=== PATIENT | female | born 1995 | race Caucasian/White ===

== ENCOUNTER 2017-09-29 21:48 | Emergency (ER) | payer SELFPAY ==
[2017-09-29 21:49] VITALS: BP 122/90; PULSE 95; RESP 14; TEMP 36.6; O2SAT 98; BMI 39.1
--- NOTE | 2017-09-29 23:05 | ED.VISSUMM ---
- ER Visit Summary Date of Service: 09/29/17 Chief Complaint: Abscess History of Present Illness: The patient is a 22 F who presents with an abscess on her gluteal area for the past 5 days. Patient states she has had similar episodes in the past that needed to be incised and drained. Patient describes the pain as sharp and burning. Patient states the pain is worse with sitting and laying. Patient denies any fevers or chills. Patient denies any nausea or vomiting. Patient denies any discharge or drainage. Patient denies any other symptoms. Physical Examination: Vital signs are stable. Patient is afebrile. Patient is in no acute distress. Skin is warm dry. There is a tender erythematous fluctuant area over the left gluteal area near the midline. There is no active drainage noted. There is no surrounding erythema or induration. The remaining physical exam is within normal limits. Emergency Department Course and Treatment: The abscess area was cleaned with chlorhexidine and anesthetized 1% plain lidocaine locally. An 11 blade scalpel was used to make a cruciate incision. A moderate amount of purulent drainage was expressed. Gauze dressing was applied. Patient tolerated the procedure well. Patient was given a prescription for Bactrim. Patient was instructed to follow-up with her primary care physician in 5-7 days. Patient understood and was agreeable with the plan. All questions were answered. Disposition: Discharged home Impression: Left gluteal abscess This note was generated with [employer] dictation software. It may contain incorrect words, spelling, and punctuation that were not noted in review of the chart prior to signing ED Disposition - Plan for ED Patient: Disposition: Home or Assisted Living Chief Complaint: Abscess Diagnosis: Abscess, gluteal, left Instructions: ED Abscess IandD Prescriptions: Clindamycin HCl [Cleocin] 300 mg PO Q6H #40 cap Referrals: Jake Jones DO [Primary Care Provider] -
[2017-09-30 00:30] VITALS: BP 122/60; PULSE 80; RESP 18; O2SAT 99
== END 2017-09-30 00:31 | disposition home or self-care (01) ==
PROVIDERS: Emergency Provider Emergency Medicine; Family Provider Preventive Medicine Occupational Medicine; PCP Preventive Medicine Occupational Medicine
DX: L02.31 Cutaneous abscess of buttock (principal); E66.9 Obesity, unspecified
CPT/HCPCS: 10060; 99282

== ENCOUNTER → 2018-05-31 | Outpatient (CLI) | payer BC, SELFPAY ==
[2018-05-31 09:54] VITALS: BMI 39.1
[2018-05-31 11:04] LABS: Absolute Lymphocyte Count 2.24 X10^3/ul (0.83-4.51); Absolute Neutrophil Count 6.5 X10^3/uL (2.0-7.7); Basophil# 0.03 X10^3/uL; Basophil% 0.3 % (0-1); Eosinophil# 0.25 X10^3/uL; Eosinophils% 2.6 % (0-5); Hematocrit 40.1 % (37-47); Hemoglobin 13.1 g/dl (12.0-15.0); Lymphocyte # 2.24 X10^3/ul (4.0); Lymphocyte % 22.9 % (19-41); Mean Corp Hgb Conc 32.7 g/gl (32-36); Mean Corpuscular Hgb 29.8 pg (27.0-32.0); Mean Corpuscular Volume 91.3 fL (81-99); Mean Platelet Vol. 10.1 fl (6.2-12.0); Monocyte# 0.78 X10^3/uL; Neutrophil # 6.46 X10^3/uL (2.7-7.7); Platelet Count 310 K/mm3 (150-450); RBC Distribution Width CV 12.3 % (11.6-14.6); RBC Distribution Width SD 41.3 fl (35.1-43.9); Red Blood Count 4.39 M/mm3 (4.2-5.4); White Blood Count 9.8 K/mm3 (4.4-11.0)
[2018-05-31 11:07] LABS: POSITIVE COUNT NO; POSITIVE DIFFERENTIAL NO; POSITIVE MORPHOLOGY NO
[2018-05-31 11:59] LABS: ALB/GLOB Ratio 1.1 RATIO (0.9-2.4); AST(SGOT) 16 U/L (15-37); Alanine Aminotransfer ALT/SGPT 18 U/L (13-56); Albumin, Serum 3.9 g/dL (3.2-5.0); Alkaline Phosphatase 68 U/L (45-117); Anion Gap 4 (5-15); BUN 18 mg/dL (7-18); Calcium,Total 8.5 mg/dL (8.5-10.1); Chloride 105 mmol/L (98-107); Creatinine, Serum 0.82 mg/dL (0.55-1.02); EST Glomerular Filtration Rate 91 mL/min (>60); Est Glom Filt Rate - Afr Amer 110 mL/min (>60); Globulin 3.7 g/dL (2.2-4.2); Glucose 86 mg/dL (74-106); Potassium 3.7 mmol/L (3.5-5.1); Protein, Total 7.6 g/dL (6.4-8.2); Sodium Level 139 mmol/L (136-145)
[2018-05-31 12:01] LABS: hCG Titer Quant., Serum < 1 mIU/mL (<9 non-preg)
[2018-05-31 19:46] LABS: Chlamydia Trachomatis by PCR POSITIVE (Negative); Neisserai gonorrhoeae by PCR Negative (Negative); Probe Check PASS; Sample Adequacy Control PASS; Specimen Processing Control PASS
[2018-06-01 16:00] LABS: AFP, Tumor Marker 0.9 ng/mL (0.0-8.3); Cancer Antigen 125 7.4 U/mL (0.0-38.1)
[2018-06-07 12:55] LABS: HPV Reflexed? NOT INDICATED
== END | disposition home or self-care (01) ==
PROVIDERS: Family Provider Preventive Medicine Occupational Medicine; PCP Preventive Medicine Occupational Medicine; Referring Provider Obstetrics & Gynecology; Visit Provider Obstetrics & Gynecology
DX: R19.00 Intra-abdominal and pelvic swelling, mass and lump, unspecified site (principal); Z11.3 Encounter for screening for infections with a predominantly sexual mode of transmission; Z12.4 Encounter for screening for malignant neoplasm of cervix
CPT/HCPCS: 36415; 80053; 82105; 84702; 85025; 86304; 87491; 87591; 87624; 88175; G0145

== ENCOUNTER → 2018-06-02 | Outpatient (CLI) | payer BC, SELFPAY ==
[2018-05-31 09:54] VITALS: BMI 39.1
--- NOTE | 2018-06-02 08:40 | CT_ITS ---
STUDY: CT ABDOMEN AND PELVIS WITH CONTRAST REASON FOR EXAM: Female, 22 years old. Pelvic mass. Prior surgery to remove ovarian cyst. RADIATION DOSAGE (If Supplied By Facility): CTDIvol = ( 19.42 ) mGy, DLP = ( 1944.57 ) mGycm TECHNIQUE: Transaxial images were obtained from the dome of the diaphragm to the symphysis pubis with oral contrast. 100ML IV/Oral Isovue 300 was administered. Sagittal and coronal images were reconstructed. Individualized dose optimization techniques were used for this CT. COMPARISON: None. FINDINGS: The visualized lung bases are unremarkable. The visualized portions of the heart are within normal limits. Normal liver. The patent portal vein diameter is 13 mm. Normal gallbladder and extrahepatic biliary system. Normal spleen. Normal pancreas. Normal bilateral adrenal glands. Normal right kidney. Normal left kidney. No hydronephrosis. Normal visualized stomach. Normal small intestine. Normal colon. The appendix is visualized and appears normal. Normal abdominal aorta. Normal inferior vena cava. Normal retroperitoneum. Normal urinary bladder. There is a cystic mass with thin, eccentric right-sided internal septations in the low abdomen/pelvis just above the urinary bladder, measuring 18 x 21.3 x 12.05 cm (R 2400 mL), consistent with an ovarian cyst. Normal sized retroflexed uterus. Normal abdominal wall. Normal osseous structures. CT/Abdomen/Pelvis WITH Contrast IMPRESSION: 21 cm cystic mass with thin, eccentric right-sided internal septations consistent with a cyst of ovarian origin in the low abdomen/pelvis. This displaces adjacent structures, but there is no sign of bowel obstruction or hydronephrosis. Electronically Signed: Héctor Pineda MD at 17:03 EDT , Service support ,
== END | disposition home or self-care (01) ==
LOC: CT 08:39
PROVIDERS: Family Provider Preventive Medicine Occupational Medicine; PCP Preventive Medicine Occupational Medicine; Referring Provider Obstetrics & Gynecology; Visit Provider Obstetrics & Gynecology
DX: R19.00 Intra-abdominal and pelvic swelling, mass and lump, unspecified site (principal)
CPT/HCPCS: 74177; Q9967

== ENCOUNTER 2018-07-19 10:47 | Day surgery (SDC) | payer BC, SELFPAY ==
[2018-05-31 09:54] VITALS: BMI 39.1
[2018-07-05 13:12] LABS: Hematocrit 38.8 % (37-47); Hemoglobin 12.7 g/dl (12.0-15.0); Mean Corp Hgb Conc 32.7 g/gl (32-36); Mean Corpuscular Hgb 29.8 pg (27.0-32.0); Mean Corpuscular Volume 91.1 fL (81-99); Mean Platelet Vol. 10.1 fl (6.2-12.0); Platelet Count 304 K/mm3 (150-450); RBC Distribution Width CV 12.4 % (11.6-14.6); RBC Distribution Width SD 40.9 fl (35.1-43.9); Red Blood Count 4.26 M/mm3 (4.2-5.4)
[2018-07-05 13:13] LABS: Scan Indicated on CBC? Y/N NO
[2018-07-05 14:50] VITALS: BMI 39.1
--- NOTE | 2018-07-18 20:17 | PCM.HPOB.BLA ---
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 Is patient in pain?: No Allergies acetaminophen [From Percocet] Adverse Reaction (Verified 07/05/18 12:01) Nausea/Vom/Diarrhea oxycodone [From Percocet] Adverse Reaction (Verified 07/05/18 12:01) Nausea/Vom/Diarrhea Medications NK 07/03/18 [History Confirmed 07/05/18] Is last menstrual period known: Yes Post menopausal: No Patient : No : No PFSH Surgical History Ovarian cyst (Acute) Social History Smoking Status: Never smoker alcohol intake: never substance use type: does not use caffeine: Yes what type of physical activity do you participate in: walking seatbelt use: always do you feel safe at home: Yes additional social history: single- works at [employer] PRE OP : Details: MITCHELL SMALLWOOD is a 22 year old who presents for preop appointment. she has a large dermoid cyst and will have a laparotomy Pregancy History 0 Elective abortions Hx Para Spontaneous abortions Hx # Term Pregnancies Ectopic pregnancies Hx # Pregnancies Multiple births # of living children ROS Const Constitutional: Denies fatigue, fever(s), headache(s), increased appetite, poor appetite, weight gain or weight loss Cardio Card: Denies chest pain Resp Resp: Denies cough or dyspnea GI GI: Reports abdominal pain : Denies nipple discharge Skin Skin/Breast: Denies change in hair, breast lump, breast pain, breast skin changes or nipple discharge Exam Const General: cooperative, healthy appearing, comfortable, no acute distress, well developed Nutritional Appearance: average body habitus Orientation: alert HENMT Head: normal to inspection, normocephalic Neck Neck: normal visual inspection, trachea midline Thyroid: thyroid normal Resp Effort & Inspection: normal respiratory effort GI Inspection: normal to inspection, non-distended Palpation: soft, no hepatosplenomegaly, large mass present, tender Skin General: no rashes or lesions noted Assessment and plan: 22-year-old with ovarian mass Plan laparotomy with removal of the ovary discussed surgical risks including risks of anesthesia, infection, bleeding, injury to bowel, bladder or blood vessels, and patient wishes to proceed with surgery. UPDATE- I have seen the patient and performed any clinically relevant updates to the history and physical exam. Justine Ch MD
[2018-07-19] VITALS (10 sets, daily range): BP systolic 97–122; BP diastolic 55–74; PULSE 59–91; RESP 14–24; TEMP 36.6–37.1; O2SAT 96–100; BMI 42.0
--- NOTE | 2018-07-19 | OV_PTH ---
PATIENT: MITCHELL SMALLWOOD LOC: [facility] [place] U#:[id number] AGE/SX: 22/F ROOM: RE07/19/[address]: Dr. Justine Ch MD : 1995 BED: DIS: 07/20/2018 SPEC #: [id number] RECD: 07/19/18 15:29 STATUS: JORGE LUIS JAYME #: [id number] NHI: 07/19/18 00:[address]: Justine Ch DEPT: SURGICAL PATHOLOGY RECD BY: Winston Leija ENTERED: 07/20/18 10:13 SP TYPE: OVARY OTHR DR: Dr. Jake Jones DO Tissues: Left ovary Procedures: Special Stain Group II Mucicarmine Stain (control) Surgery Specimen Level V HEADER OPERATION: ERAS, exploratory laparotomy, unilateral salpingo-oophorectomy PRE-OP DIAGNOSIS: Ovarian mass TISSUE SUBMITTED: Left ovary and fallopian tube MICROSCOPIC DIAGNOSIS Left ovary and fallopian tube, salpingo-oophorectomy: Multiloculated mucinous cystadenofibroma. Tubo-ovarian adhesions. See comment. AM:valentín 07/21/18 COMMENT Mucin stain with matched control supports the above diagnosis. MICROSCOPIC DESCRIPTION Slides are reviewed. GROSS DESCRIPTION Received in fixative is one container labeled with the patient's name and designated left ovary and fallopian tube. The specimen consists of a spherical to slightly ovoid cystic tumor mass measuring 22.2 x 20 x 13.2 cm and weighing 2.2 kg. The serosal surface is bluish-pink to coronado-brown with some focal fibrous adhesions. Prominent vascular markings are observed. The specimen is opened to reveal 1700 cc of brown, watery fluid. The interior surface of the major cyst has a simple lining with two small nodules ranging in diameter from 0.4 to 0.7 cm. However, a separate portion of the specimen outside of the main cyst shows an area of multiloculated cyst measuring 9 x 7.1 x 2.7 cm. This multiloculated cyst is opened to reveal straw-colored mucoid fluid. The interior lining of this cyst is multiloculated. No nodules or papillary excrescences are found. The anterior linings of the nodules show smooth surfaces. Examination of the serosal surfaces demonstrates a 3 x 1 cm area of what appears to be fimbriated end of fallopian tube. Business Leader sections are submitted as follows: 1-9 - complex cystic structure, 10-12 - simple cystic structure, 13 & 14 - fallopian tube. / CE:valentín 07/20/18 TC:1 CPT: 55720, 12360
--- NOTE | 2018-07-19 | FLU_PTH ---
PATIENT: MITCHELL SMALLWOOD LOC: [facility] [place] U#:[id number] AGE/SX: 22/ ROOM: RE07/19/[address]: Dr. Justine Ch MD : 1995 BED: DIS: 07/20/2018 SPEC #: [id number] RECD: 07/20/18 09:54 STATUS: JORGE LUIS JAYME #: [id number] NHI: 07/19/18 00:[address]: Justine Ch DEPT: CYTOLOGY RECD BY: Winston Leija ENTERED: 07/20/18 10:05 SP TYPE: Fluid OTHR DR: Dr. Jake Jones, DO Tissues: Pelvis, NOS Procedures: Special Stain Group II Surgery Specimen Level IV Cytospin Fluid HEADER OPERATION: ERAS, exploratory laparotomy, unilateral salpingo-oophorectomy PRE-OP DIAGNOSIS: Ovarian mass TISSUE SUBMITTED: Peritoneal cell washings for cytology DIAGNOSIS CYTOLOGY Peritoneal washings for cytology (cytospin and cell block): Negative for malignant cells. AM:valentín 07/21/18 COMMENT Please see corresponding surgical case ([id number]). CYTOLOGY STUDY Slides are reviewed. CYTOLOGY GROSS Received is 5 ml of red cloudy fluid labeled with the patient's name and and designated per the requisition as peritoneal cell washings. Submitted for cytology preparation including cell block. / 07/20/18 TC:5 CPT: 01366, 91040
[2018-07-19] MEDS: Gabapentin 600 MG Tablet PO (11:55)
[2018-07-19] MEDS: Magnesium Sulfate 4gm/100mL 4 GM/100 ML IV.SOLN. IV (11:59)
[2018-07-19] MEDS: Celecoxib 200 MG Capsule 400 MG PO (12:01)
[2018-07-19] MEDS: Lactated Ringers 1,000 ML 40 ML IV ×2 (12:03→22:30)
[2018-07-19] MEDS: Enoxaparin 40 MG/0.4 ML Syringe SC (12:03)
[2018-07-19] MEDS: dexAMETHasone 10 MG/ML Vial 8 MG IV (12:04)
[2018-07-19 12:06] LABS: Bedside Glucose 80 mg/dL (70-110)
[2018-07-19] MEDS: Phenazopyridine 95 MG Tablet 190 MG PO (12:10)
[2018-07-19] MEDS: Acetaminophen 500 MG Tablet 1000 MG PO (12:10)
[2018-07-19 12:22] LABS: Internal QC Validated? YES +Cl - CLEAR BKGD; Pregnancy, Urine Negative Negative
[2018-07-19] MEDS: Scopolamine 1mg/72hr Patch 1 PATCH TRANSDERM. (12:30)
[2018-07-19] MEDS: Cefazolin 2 GM in 0.9% Normal Saline 100 ML IV (13:28)
[2018-07-19] MEDS: Ondansetron 4 MG/2 ML Vial IV (13:33)
--- NOTE | 2018-07-19 13:37 | OP.PCM_ITS ---
Problem List (1) Pelvic mass Status: Acute Comment: will need laparotomy, ovarian mass, ct ordered, labs (2) Cyclical pelvic pain Status: Chronic Comment: h/o ovarian cysts Report of Operation Date of Procedure: 07/19/18 Pre-Operative Diagnosis: ovarian mass Post-Operative Diagnosis: same Surgery/Procedure Performed:: laparotomy left salpingoophorectomy extensive lysis of adhesions Description of Surgical Findings:: enlarged left ovary over 25 cm in length and 20 cm in width, extensive adhesions of epiploica from small bowel and sigmoid colon to the entire area. Omental to uterine and right ovary adhesions. Omental to anterior abdominal wall adhesions. Normal right ovary normal uterus high school industrial arts teacher: Awilda Sutton high school industrial arts teacher: Idalia Castellon Type of Anesthesia:: General Special Medications: kinjal Specimen's removed: left ovary and tube Drains: hart Estimated Blood Loss (mL): 200 Fluids Replaced: crystalloid Description of Procedure: Patient was taken the operating room and placed under general anesthesia. She was prepped and draped in normal sterile fashion in the dorsal supine position. A vertical skin incision was made due to the large mass that measured approximately 25 cm in height. Subcutaneous tissue was dissected down to the level of the fascia which was incised in the midline and rectus bellies dissected off bilaterally peritoneum entered digitally incision extended superiorly and inferiorly. The fascial incision and the skin incision also extended up around the umbilicus due to the large mass and inability to mobilize and lifted out of the incision due to a large amount of scar tissue. Omental to anterior abdominal wall adhesions were noted which were taken down and tied off with Vicryl. The large mass was noted to be the left ovary with no papillary excrescences and a very smooth appearance noted. Pelvic washings were taken. Right ovary was noted to be within normal limits the right fallopian tube was fairly normal although some mild clubbing was noted and significant adhesions over the right tube and uterus were noted. There were large adhesions across the entire mass of the epiploica of multiple areas of bowel that was stuck to the ovary. With careful sharp and blunt dissection the adhesions were taken down circumferentially around the entire mass. Careful attention was paid to the proximity of the bowel and the epiploica was covered with moist towels to provide some gentle traction. Excellent hemostasis was noted. Over 60 minutes were spent intraoperatively dissecting the adhesions off of the ovarian mass. The utero-ovarian ligament was identified and transected with 0 Vicryl and then the infundibulopelvic ligament was identified and transected as well. Broad ligament was opened and additional attachments were skeletonized and transected with 0 Vicryl. The ovary was removed and sent to pathology for analysis. It weighed over 3300 g. Additional adhesiolysis was performed to remove the omentum from the uterus and arnel-fallopian tube area. Kinjal was applied to the areas and hemostasis was noted. Starting superiorly and then also inferiorly with a second suture the peritoneum and abdominal wall were closed with 3-0 Vicryl and 0 PDS strata fix suture. Subcutaneous tissue was copiously irrigated and reapproximated with plain suture and skin was closed with 3-0 Monocryl. Mepilex and Steri-Strips were applied. Patient was awoken and taken recovery in stable condition. Grafts/Implants Used: none - Complications none - Admit VTE Documentation VTE Present on Admission: No VTE Mechan Device Prophylaxis: SCD's
[2018-07-19] MEDS: Lactated Ringers 1,000 ML 70 ML IV (16:55)
[2018-07-19] MEDS: Ketorolac 30 MG/ML Syringe IV (17:53)
[2018-07-19] MEDS: Ondansetron ODT 4 MG Tablet PO (21:08)
[2018-07-19] MEDS: proMETHazine 25 MG Tablet 12.5 MG PO (22:28)
[2018-07-19 23:52] LABS: Cytology, Body Fluid / CSF SEE PATHOLOGY REPORT
[2018-07-20] MEDS: Lactated Ringers 1,000 ML 70 ML IV ×2 (00:26→04:17)
[2018-07-20] MEDS: Ketorolac 30 MG/ML Syringe IV ×3 (00:29→12:57)
[2018-07-20 04:24] VITALS: BP 104/61; PULSE 80; RESP 18; TEMP 37; O2SAT 99
[2018-07-20 06:12] LABS: Hematocrit 37.6 % (37-47); Hemoglobin 12.4 g/dl (12.0-15.0); Mean Corpuscular Hgb 29.8 pg (27.0-32.0); Mean Corpuscular Volume 90.4 fL (81-99); Mean Platelet Vol. 10.6 fl (6.2-12.0); Platelet Count 271 K/mm3 (150-450); RBC Distribution Width CV 12.1 % (11.6-14.6); RBC Distribution Width SD 39.8 fl (35.1-43.9); Red Blood Count 4.16 M/mm3 (4.2-5.4); White Blood Count 10.6 K/mm3 (4.4-11.0)
[2018-07-20 06:13] LABS: Scan Indicated on CBC? Y/N NO
[2018-07-20 09:48] VITALS: BP 100/60; PULSE 80; RESP 18; TEMP 36.7; O2SAT 100
[2018-07-20] MEDS: Docusate Sodium 100 MG Capsule PO (09:55)
[2018-07-20] MEDS: Enoxaparin 40 MG/0.4 ML Syringe SC (09:56)
--- NOTE | 2018-07-20 11:10 | PCM.PN.OB ---
Subjective: no CP SOB N V doing well - Physical Exam General: Alert, Oriented x3 Abdomen: Soft, Non Tender, Non-Distended Vital Signs Temp Pulse Resp BP Pulse Ox 98.1 F 80 18 100/60 100 07/20/18 09:48 07/20/18 09:48 07/20/18 09:48 07/20/18 09:48 07/20/18 09:48 Oxygen Flow Rate (L/min) 6 Oxygen Delivery Method Room Air Weight: 252 lb 13.923 oz Body Mass Index (BMI) 42.0 Intake and Output for Last 24 Hours 07/18/18 07/19/18 07/20/18 23:59 23:59 23:59 Intake Total 2100 / 2100 1482 / 1482 Output Total 275 / 275 1475 / 1475 Balance 1825 / 1825 Laboratory Tests Past 24 Hrs 07/19/18 07/19/18 07/20/18 11:00 13:00 05:30 WBC 10.6 RBC 4.16 L Hgb 12.4 Hct 37.6 MCV 90.4 MCH 29.8 MCHC 33.0 RDW 12.1 RDW Differential 39.8 Plt Count 271 MPV 10.6 Urine Test Negative Miscellaneous Cytology Pending POC Glucose 07/19/18 11:40 POC Glucose 80 Medical Necessity - Tobacco Use Smoking Status: Never smoker Tobacco Use: Non-smoker Assessment/Plan All Active Problems (Last Reviewed 07/05/18 @ 12:01 by Jaky Chairez) Pelvic mass (Acute) s/p laparotomy ovarian mass removal pod 1 ambulating, voiding tolerating po stable for dc home patient wanting to leave today, dc home
--- NOTE | 2018-07-20 11:11 | PCM.DC.AHY ---
Discharge Diet: No Restrictions Discharge Activity: Return to Normal Activity, May Not Drive - while taking narcotic pain medications. May resume sexual activity in: 6-8 weeks Call your doctor if your incision/area has: Continuous Slow Oozing, Sudden Increased Bleeding, Increased Pain/ Swelling, Increased Redness, Foul Smelling Discharge Call your doctor if you observe: Fever of 101 or Higher Allergies/Adverse Reactions: Allergies oxycodone [From Percocet] Adverse Reaction (Verified 07/19/18 11:33) Nausea/Vom/Diarrhea Medications to take at Discharge Hydrocodone/Acetaminophen [Stonewall 5-325 Tablet] 1 each PO Q4H PRN PRN 4 Days #28 tablet 07/20/18 Naproxen [Naprosyn] 250 - 500 mg PO Q8H PRN PRN #30 tablet 07/20/18 The following prescriptions were given: Hydrocodone/Acetaminophen [Stonewall 5-325 Tablet] 1 each PO Q4H PRN PRN 4 Days #28 tablet PRN Reason: Pain Naproxen [Naprosyn] 250 - 500 mg PO Q8H PRN PRN #30 tablet PRN Reason: MILD PAIN Primary Care Physician: Jake Jones DO [Primary Care Provider] - Test Results: Test results from this visit will be discussed in further detail at your follow-up appointment, if applicable. Please Follow Up With: Justine Ch MD - [phone] When: in 2 weeks
== END 2018-07-20 13:14 | disposition home or self-care (01) ==
LOC: SDC 10:48 → AC 10:58 → MS2 14:21
PROVIDERS: Anesthesiology; Family Provider Preventive Medicine Occupational Medicine; PCP Preventive Medicine Occupational Medicine; Referring Provider Obstetrics & Gynecology; Visit Provider Obstetrics & Gynecology
PROC: (CPT 49000; principal; 2018-07-19 12:45)
DX: D27.1 Benign neoplasm of left ovary (principal); N73.6 Female pelvic peritoneal adhesions (postinfective)
CPT/HCPCS: 58720; 36415; 81025; 82962; 85027; 86850; 86900; 88108; 88305; 88307; 88313; J7120; J2405

== ENCOUNTER → 2018-09-15 | Outpatient (CLI) | payer BC, SELFPAY ==
[2018-09-15 16:07] VITALS: BMI 42.0
== END | disposition home or self-care (01) ==
LOC: LABSPEC 16:38
PROVIDERS: Family Provider Preventive Medicine Occupational Medicine; PCP Preventive Medicine Occupational Medicine; Referring Provider Nurse Practitioner Women's Health; Visit Provider Nurse Practitioner Women's Health
DX: N39.0 Urinary tract infection, site not specified (principal)
CPT/HCPCS: 87077; 87086; 87088

== ENCOUNTER → 2018-12-26 | Outpatient (CLI) | payer BC, SELFPAY ==
[2018-11-20 14:17] VITALS: BMI 41.2
--- NOTE | 2018-12-26 08:06 | US_ITS ---
STUDY: ULTRASOUND OF THE FEMALE PELVIS - COMPLETE REASON FOR EXAM: Female, 23 years old. Mid pelvic pain. LMP: December 22, 2018. TECHNIQUE: Transabdominal and Transvaginal TECHNICAL QUALITY: Adequate. COMPARISON: None. FINDINGS: The uterus is retroflexed and is in a midline position. The uterus measures 7.1 cm x 5.4 cm x 3.3 cm. Normal uterine cervix. The endometrium measures 6.0 mm in thickness, and is fluid distended. There is no demonstrated endometrial mass. There is no demonstrated myometrial mass. I.U.D. - The patient does not have an I.U.D. The patient is status post right oophorectomy. The left ovary is non-visualized. There is no fluid in the cul-de-sac. Polycystic ovary disease: No. US/Transvaginal Non- IMPRESSION: Status post right oophorectomy. No acute abnormality is seen. Electronically Signed: Mihir Rodriguez, at 14:30 EST , Service support ,
--- NOTE | 2018-12-26 08:06 | US_ITS ---
STUDY: ULTRASOUND OF THE FEMALE PELVIS - COMPLETE REASON FOR EXAM: Female, 23 years old. Mid pelvic pain. LMP: December 22, 2018. TECHNIQUE: Transabdominal and Transvaginal TECHNICAL QUALITY: Adequate. COMPARISON: None. FINDINGS: The uterus is retroflexed and is in a midline position. The uterus measures 7.1 cm x 5.4 cm x 3.3 cm. Normal uterine cervix. The endometrium measures 6.0 mm in thickness, and is fluid distended. There is no demonstrated endometrial mass. There is no demonstrated myometrial mass. I.U.D. - The patient does not have an I.U.D. The patient is status post right oophorectomy. The left ovary is non-visualized. There is no fluid in the cul-de-sac. Polycystic ovary disease: No. US/Pelvic (Non ) IMPRESSION: Status post right oophorectomy. No acute abnormality is seen. Electronically Signed: Mihir Rodriguez, at 14:30 EST , Service support ,
== END | disposition home or self-care (01) ==
LOC: OPUS 08:05
PROVIDERS: Family Provider Preventive Medicine Occupational Medicine; PCP Preventive Medicine Occupational Medicine; Referring Provider Nurse Practitioner Women's Health; Visit Provider Nurse Practitioner Women's Health
DX: R10.2 Pelvic and perineal pain (principal)
CPT/HCPCS: 76830; 76856

== ENCOUNTER → 2019-03-26 | Outpatient (CLI) | payer BC, SELFPAY ==
[2019-03-26 09:12] VITALS: BMI 42.0
[2019-03-26 15:08] LABS: Bacteria 0 SEEN /hpf (None Seen); Mucous, Urine 0 SEEN /hpf (<or=2+)
[2019-03-26 15:18] LABS: Color, Urine Yellow (Yellow); Glucose, Dipstick Normal (Normal); Ketone-Dipstick Negative (Negative); Leukocyte Esterase-Dipstick 100 /ul (Negative); Nitrite-Dipstick Negative (Negative); Occult Blood-Urine 10 /ul (Negative); Protein-Dipstick 30 mg/dl (Negative); Urine Bilirubin Dipstick Negative (Negative); Urine Clarity Cloudy (Clear); Urine Urobilinogen Normal (Normal)
[2019-03-26 15:51] LABS: Red Blood Cells-Urine 0-5 SEEN /hpf (0-5); Squamous Epithelial Cells - UA 10-25 SEEN /hpf (5-10); White Blood Cells 50-100 SEEN /hpf (0-5)
== END | disposition home or self-care (01) ==
LOC: LABSPEC 14:30
PROVIDERS: PCP Preventive Medicine Occupational Medicine; Referring Provider Nurse Practitioner Family; Visit Provider Nurse Practitioner Family
DX: N39.0 Urinary tract infection, site not specified (principal)
CPT/HCPCS: 81001; 87077; 87086; 87088

== ENCOUNTER 2019-06-30 03:50 | Emergency (ER) | payer BC, SELFPAY ==
[2019-03-26 09:12] VITALS: BMI 42.0
[2019-06-30 03:52] VITALS: BP 136/81; PULSE 101; RESP 16; TEMP 36.9; O2SAT 98; BMI 41.8
--- NOTE | 2019-06-30 04:23 | RAD_ITS ---
STUDY: X-RAY - ABDOMEN/PELVIS REASON FOR EXAM: Female, 23 years old. Rectal fb TECHNIQUE: Two AP supine views of the abdomen and pelvis. COMPARISON: None. FINDINGS: Lung bases are out of the [id number]-[id number]. There is moderate stool in the colon. Liver spleen and kidneys are obscured on this study. There is a 10.5 x 5 cm foreign body within the sigmoid colon projected over the sacrum approximately 8 cm proximal to the level of the rectum. Normal visualized osseous structures. RAD/Abdomen Single View IMPRESSION: 10.5 x 5 cm foreign body within the sigmoid colon. Electronically Signed: Henny Knight MD at 5:16 EDT Tel , Service support ,
--- NOTE | 2019-06-30 04:27 | ED.DCSUM_ITS ---
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 no abd pain, n/v. Narrative: Patient and her boyfriend placed a rubber or silicone dildo of her anus and it was lost inside. Her boyfriend tried to remove it with his finger, she states he said he could feel it, but not get it out. She denies any other foreign objects. It is battery-operated. Past Medical History - Allergies and Home Meds Allergies/Adverse Reactions: Allergies oxycodone [From Percocet] Adverse Reaction (Verified 06/30/19 03:51) Nausea/Vom/Diarrhea Primary Care Physician: NOT,DEFINED [NON-STAFF] - Past Medical History: None Lives: Spouse/ Significant Other Smoking Status: Never smoker Review of Systems General: Denies: Chills, Fever, Sweats Eyes: Denies: Visual changes - bilaterally, Diplopia ENT: Denies: Rhinorrhea, Sore throat Cardiovascular: Denies: Chest pain, Palpitations Respiratory: Denies: Dyspnea, Cough, Dyspnea on exertion Gastrointestinal: Denies: Abdominal pain, Nausea, Vomiting, Diarrhea, Melena, Hematochezia Genitourinary: Denies: Dysuria, Hematuria, Frequency Musculoskeletal: Denies: Neck pain, Back pain, Extremity Pain Skin: Denies: Rash, Wounds Neurological: Denies: Headache, Weakness, Numbness Physical Exam Vital Signs/Narrative: Vital Signs Temp Pulse Resp BP Pulse Ox 06/30/19 03:52 98.5 F 101 H 16 136/81 H 98 Inital Vital Signs reviewed: Yes General: Well nourished, Well developed, No Acute Distress Head: Normocephalic, Atraumatic Eyes: Perrl, EOMI ENT: Moist mucous membranes, No rhinorrhea Neck: Supple, Nontender Cardiovascular: Regular rate, Regular rhythm, No murmurs. Negative for: Tachycardia Respiratory: No distress, CTA bilaterally, Chest nontender Abdomen: Soft, Nontender, Nondistended, Normal bowel sounds Rectal: Nontender, - - No foreign object palpable. No signs of perianal trauma or abscess. Back: Nontender, Normal Inspection Extremities: Nontender, No edema Skin: Normal color, No rash, No Trauma Neurological: Alert, Oriented x3, Cranial nerves II-XII grossly intact, Normal Strength, Normal Sensation, Normal Gait Psychological: Normal affect, Normal Mood Diagnostic/Tx/Re-eval Clinical Impression(s) from Imaging Studies KUB X-Ray 06/30/19 04:23 IMPRESSION: 10.5 x 5 cm foreign body within the sigmoid colon. Electronically Signed: Henny Knight MD at 5:16 EDT Tel , Service support , - Medical Decision Making Since I was not able to palpate the foreign body, a KUB x-ray was obtained, verifying presence of a rectal foreign body with electronics. I discussed with Dr. Can who was on for surgery, she thought it would be reasonable to try a mineral oil enema first, before rectal exam under anesthesia/endoscopy. This was performed, and after 45 minutes or so, patient was able to have a bowel movement and the foreign body followed along with it, completely removed spontaneously. Patient feels much better. This was uncomplicated. Given appropriate discharge instructions. ED Disposition - Plan for ED Patient: Disposition: Home or Assisted Living Diagnosis: Foreign body of rectum Instructions: ED Rectal Foreign Body Removed Adult Referrals: Doctor,Your [STAFF PHYSICIAN] - As Needed
[2019-06-30] MEDS: Mineral Oil 1 BOTTLE ENEMA 1 ML RECTAL (04:55)
[2019-06-30 06:15] VITALS: PULSE 87; RESP 18; O2SAT 98
== END 2019-06-30 06:29 | disposition home or self-care (01) ==
PROVIDERS: Emergency Provider Emergency Medicine
DX: T18.4XXA Foreign body in colon, initial encounter (principal)
CPT/HCPCS: 74018; 99282

== ENCOUNTER → 2019-09-10 | Outpatient (CLI) | payer BC, SELFPAY ==
[2019-09-10 08:10] VITALS: BMI 41.8
[2019-09-10 15:54] LABS: Mucous, Urine 0 SEEN /hpf (<or=2+)
[2019-09-10 16:09] LABS: Color, Urine Yellow (Yellow); Glucose, Dipstick Normal (Normal); Leukocyte Esterase-Dipstick 100 /ul (Negative); Nitrite-Dipstick Positive (Negative); Occult Blood-Urine 50 /ul (Negative); Protein-Dipstick 100 mg/dl (Negative); Specific Gravity, Urine 1.025 (1.002-1.030); Urine Bilirubin Dipstick Negative (Negative); Urine Clarity Cloudy (Clear); Urine Urobilinogen Normal (Normal)
[2019-09-10 16:57] LABS: White Blood Cells 25-50 SEEN /hpf (0-5)
[2019-09-10 16:58] LABS: Bacteria 1+ /hpf (None Seen); Red Blood Cells-Urine 0-5 SEEN /hpf (0-5); Squamous Epithelial Cells - UA 10-25 SEEN /hpf (5-10)
[2019-09-10 17:38] LABS: Ketone-Dipstick 150 mg/dl (Negative)
== END | disposition home or self-care (01) ==
LOC: LABSPEC 10:18
PROVIDERS: Referring Provider Physician Assistant Surgical; Visit Provider Physician Assistant Surgical
DX: R35.0 Frequency of micturition (principal)
CPT/HCPCS: 81001; 87077; 87086; 87088

== ENCOUNTER → 2021-12-15 | Outpatient (CLI) | payer BC, SELFPAY ==
[2021-12-15 10:20] LABS: Bacteria 0 SEEN /hpf (None Seen); Mucous, Urine 0 SEEN /hpf (<or=2+)
[2021-12-15 10:31] LABS: Color, Urine Yellow (Yellow); Glucose, Dipstick Normal (Normal); Ketone-Dipstick Negative (Negative); Leukocyte Esterase-Dipstick 100 /ul (Negative); Nitrite-Dipstick Negative (Negative); Occult Blood-Urine 250 /ul (Negative); Protein-Dipstick 30 mg/dl (Negative); Urine Bilirubin Dipstick Negative (Negative); Urine Clarity Sl. Cloudy (Clear); Urine Urobilinogen 1 mg/dl (Normal)
[2021-12-15 10:42] LABS: Red Blood Cells-Urine 25-50 SEEN /hpf (0-5); Squamous Epithelial Cells - UA 0-5 SEEN /hpf (5-10); White Blood Cells 10-25 SEEN /hpf (0-5)
== END | disposition home or self-care (01) ==
LOC: LABSPEC 10:06
PROVIDERS: Referring Provider Physician Assistant Surgical; Visit Provider Physician Assistant Surgical
DX: N39.0 Urinary tract infection, site not specified (principal)
CPT/HCPCS: 81001; 87077; 87086; 87088; 87186

== ENCOUNTER 2021-12-22 11:24 | Day surgery (SDC) | payer BC, SELFPAY ==
--- NOTE | 2021-12-21 22:52 | HP.PCM_ITS ---
History and Physical Intake Vital Signs ? 12/04/2209:52 12/04/2209:53 Height 5 ft 5 in 5 ft 5 in Weight: 243 lb ? BMI 40.4 ? BP 102/80 ? 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 Ovarian cyst S/P unilateral salpingo-oophorectomy (~07/19/18) Family History?(Updated 12/04/21 @ 10:59 by Lorrie Comer) Father?? Diabetes ?? ? parents were adopted- does not know history other than DM for father Social History? Smoking Status:? Never smoker alcohol intake:? never substance use type:? does not use caffeine:? Yes what type of physical activity do you participate in:? walking seatbelt use:? always do you feel safe at home:? Yes additional social history:? single- works at [employer] History ? ? ? 0 ? Elective abortions ? Hx Para ? Spontaneous abortions ? Hx # Term Pregnancies ? Ectopic pregnancies ? Hx # Pregnancies ? Multiple births ? # of living children ? HPI Encounter for routine gynecological examination Details: MITCHELL SMALLWOOD is a 26 year old who presents for annual exam.? trying to lose weight hasn't formally been tracking but has increase activity. still has lower pelvic and baodminal pain. she is also wanting sterilization.? she has never wanted to have children and is wanting to not have to take control anymore and wants permanent sterilization Last PAP: 2019 History of abnormal PAP: no Other preventative health care screenings: pcp Female Reproductive History Last Menstrual Period: 10/14/22 Cycle Length: 21-35 Bleeding Duration: 5 Questions: metorrhagia: No, sexually active: Yes, dyspareunia: No and PCB: No Menopausal Symptoms: No hot flashes, No night sweats, No weight change, No mood changes, No difficulty concentrating, No sleep problems and No change in libido ROS Const Constitutional: Reports as per HPI; Denies fatigue, increased appetite, poor appetite, night sweats, weight gain or weight loss Cardio Card: Denies chest pain Resp Resp: Denies cough or dyspnea GI GI: Reports as per HPI and abdominal pain; Denies bloating, constipation, nausea or vomiting : Reports as per HPI, urinary frequency and other; Denies difficulty voiding, dysuria, hematuria, hot flashes, nipple discharge, pelvic pain, prolapse symptoms, urinary incontinence, urinary urgency, vaginal discharge, vaginal dryness, vaginal odor or vaginal pruritus Skin Skin/Breast: Denies changing lesions, breast mass, breast pain, breast skin changes or nipple discharge Psych Psych: Reports depression (decline smedicaiton- states this is a lifelong issues); Denies anxiety, change in libido or difficulty concentrating Exam Const General: cooperative, healthy appearing, comfortable, no acute distress, well developed and well groomed [facility] Head: normal to inspection and normocephalic Ears: hearing grossly normal bilaterally and external ears normal Nose: external nose normal Face and sinus: normal facial exam Neck Neck: normal visual inspection, full ROM and no lymphadenopathy Thyroid: thyroid normal Chest Chest palpation & inspection: normal inspection of the chest Breast inspection: normal inspection of the breasts and normal inspection of the axillae Breast palpation: normal palpation of the breasts, normal palpation of the axillae and no axillary lymphadenopathy Resp Effort & Inspection: normal respiratory effort GI Inspection: normal to inspection and non-distended Palpation: soft, no hepatosplenomegaly and no guarding Skin General: no rashes or lesions noted Neuro General: patient alert, moves all extremities and no focal motor deficits Extrem General: normal to inspection and no pedal edema Psych Appearance: grossly normal Mental Status: mental status grossly normal Affect: normal affect Speech and Movement: speech and movement normal Attitude: cooperative Coding Level of Care Code Off vis,est,prev 18-39yrs Diagnoses Encounter for routine gynecological examination? Z01.419 ? ? ? Gynecological examination findings: abnormal findings ABSENT Sterilization? Z30.2 Assessment and Plan Assessment and Plan (1) Encounter for routine gynecological examination: ?Qualifiers: ?Gynecological examination findings:?abnormal findings ABSENT? Qualified Code(s):?Z01.419 - Encounter for gynecological examination (general) (routine) without abnormal findings (2) Sterilization: ?Status:?Acute ?Comment: plan lap salpingectomy Plan Cervical cancer screening: pap due but declined pelvic exam on menses Breast cancer screening: clinical she is requesting sterilization.? she has been this way for her lifetime, she has ended relationships because she doesn't want children.? she was counseled regarding risk of regret and she wants to proceed. other health maintenance examination reviewed and orders placed if needed.? Encouraged maintenance of a healthy weight and active lifestyle and handout given. Annual exam handout including recommendations for good health guidelines, Calcium/vitamin D recommendations, and basic screening information given.? Problem list up to date, see problem list details for any additional plan information. Follow up in one year for annual health maintenance exam or sooner if needed. UPDATE- I have seen the patient and performed any clinically relevant updates to the history and physical exam. Justine Ch MD
[2021-12-22] VITALS (14 sets, daily range): BP systolic 105–122; BP diastolic 69–79; PULSE 59–83; RESP 16–18; TEMP 36.9–37.2; O2SAT 96–100; BMI 39.0
[2021-12-22] MEDS: Lactated Ringers 1,000 ML 15 ML IV ×2 (11:35→15:45)
[2021-12-22 12:06] LABS: Internal QC Validated? YES +Cl - CLEAR BKGD; Pregnancy, Urine Negative Negative
[2021-12-22 12:11] LABS: Absolute Lymphocyte Count 2.04 X10^3/uL (0.83-4.51); Absolute Neutrophil Count 4.2 X10^3/uL (2.0-7.7); Basophil# 0.04 X10^3/uL; Basophil% 0.6 % (0-1); Eosinophil# 0.21 X10^3/uL; Eosinophils% 2.9 % (0-5); Hematocrit 39.7 % (37-47); Hemoglobin 13.6 g/dL (12.0-15.0); Lymphocyte # 2.04 X10^3/ul (0.83-4.51); Lymphocyte % 28.4 % (19-41); Mean Corp Hgb Conc 34.3 g/dL (32-36); Mean Corpuscular Hgb 31.6 pg (27.0-32.0); Mean Corpuscular Volume 92.1 fL (81-99); Mean Platelet Vol. 10.5 fl (6.2-12.0); Monocyte# 0.64 X10^3/uL; Monocyte% 8.9 % (0-10); NRBC Flagged by Analyzer 0 % (0-5); Neutrophil # 4.24 X10^3/uL (2.7-7.7); Neutrophil % 58.9 % (47-70); Platelet Count 285 K/mm3 (150-450); RBC Distribution Width CV 13.2 % (11.6-14.6); RBC Distribution Width SD 45.1 fl (35.1-43.9); Red Blood Count 4.31 M/mm3 (4.2-5.4); White Blood Count 7.2 K/mm3 (4.4-11.0)
--- NOTE | 2021-12-22 13:10 | FALS_PTH ---
PATIENT: MITCHELL SMALLWOOD [place] [facility] [place][id number] AGE/SX: 26/F ROOM: RE12/22/[address]: Dr. Justine Ch MD : 1995 BED: DIS: 12/22/2021 SPEC #: [id number] RECD: 12/23/21 07:18 STATUS: JORGE LUIS REMissy #: [id number] NHI: 12/22/21 13:[address]: Justine Ch DEPT: SURGICAL PATHOLOGY RECD BY: Jerod Dyson ENTERED: 12/23/21 08:46 SP TYPE: FALL TUBES OTHR DR: No Primary Care Phys Tissues: Fallopian tube Procedures: Surgery Specimen Level II HEADER OPERATION: Laparoscopic salpingectomy, extensive lysis of adhesions PRE-OP DIAGNOSIS: Elective sterilization TISSUE SUBMITTED: Right fallopian tube MICROSCOPIC DIAGNOSIS Right fallopian tube, salpingectomy: Complete cross-section of fallopian tube with no pathologic change. AM:valentín 12/24/2021 MICROSCOPIC DESCRIPTION Slides are reviewed. GROSS DESCRIPTION Received in fixative is one container labeled with the patient's name and designated right fallopian tube. The specimen consists of a 4 cm segment of fallopian tube containing a normal fimbrial end. The fallopian tube has a diameter of 0.8 cm. No mass lesions are identified. Banking Officer sections are submitted in one cassette. / AM:valentín 12/23/2021 TC:4 CPT: 54201
[2021-12-22] MEDS: Bupivacaine 0.25% 30 ML Vial (15:11)
--- NOTE | 2021-12-22 17:26 | DCINST_ITS ---
Discharge Instructions Diet Discharge Diet: No restrictions Activity Discharge Activity: Return to Normal Activity, May Drive (when pain free) and May Shower May resume sexual activity in: 1 week Weight Bearing Status: Full weight bearing Lifting Restrictions: 30 lbs for 2 weeks Dressing / Incision Call your doctor if your incision/area has: Continuous Slow Oozing, Sudden Increased Bleeding, Increased Pain/ Swelling, Increased Redness and Foul Smelling Discharge Call your doctor if you observe: Fever of 101 or Higher, Using more than 1 pad per hour, Shortness of breath, Chest pain and Uncontrolled pain Suture Line Care: Avoid Pulling/Pushing and Avoid Pinching/Bending Remove Dressing in: 1 week (if present) Cleanse incision/area with: Soap & Water and Keep Dressing Clean & Dry Follow Up Care Please Follow Up With: Justine Ch MD When: Call to make an appointment with your doctor for a postop visit in 2 weeks Test Results: Test results from this visit will be discussed in further detail at your follow- up appointment, if applicable. Discharge Plan Admission Attending Provider: Justine Ch Primary Care Provider: Care Physician,Azeb Primary Discharge Orders/Prescriptions Prescriptions: New hydrocodone-acetaminophen 5-325 mg Tablet 1 - 2 tab PO Q6H PRN PRN (Reason: Pain Score 1-5/10) 7 Days Qty: 0 0RF naproxen 250 mg tablet 250 - 500 mg PO Q8H PRN PRN (Reason: MILD PAIN) Qty: 30 1RF hydrocodone-acetaminophen 5-325 mg tablet 1 tab PO Q6H PRN (Reason: pain) 7 Days Qty: 28 0RF Referrals / Follow Up: Care PhysicianAzeb Primary [Primary Care Provider] - Disposition Disposition (needs filled in before D/C Order can be placed): Home, Self Care
--- NOTE | 2021-12-22 17:26 | OP.PCM_ITS ---
Problems Associated Problem List Diagnoses (1) Sterilization: (2) History of salpingectomy: (3) Pelvic adhesions: (4) Cyclical pelvic pain: Report of Operation Pre-Operative Diagnosis: see problem list Post-Operative Diagnosis: same Surgery/Procedure Performed:: laparoscopic bilateral salpingectomy Description of Surgical Findings:: nl uterus tubes ovaries Type of Anesthesia: General and Local Specimen's removed: tubes Drains: none Estimated Blood Loss (mL): 50 Fluids Replaced: crystalloid Description of Procedure: Patient was taken in the operating room and was placed under general anesthesia was prepped and draped in normal sterile fashion in the dorsal lithotomy position. Bladder was drained of clear urine and SCDs were on preoperatively. Uterus was sounded and a uterine manipulator was placed after dilating. Attention was then paid to the abdominal portion of the procedure and the umbilicus was elevated with towel clamps and injected with Marcaine and after a 5 mm incision was made and the Veress needle was entered into the abdomen confirmed to be intra-abdominal with a low opening pressure of less than 5 mmHg. Abdomen was insufflated with CO2 gas and a 5 mm optical trocar was placed under direct visualization. A 5 mm port was placed in the right and left lower quadrant under direct visualization. Severe scar tissue was encountered and uterus and ovary and tube were not visualized. Omentum was completely adherent to the anterior abdominal wall. This was taken down with the LigaSure device progressively to perform adhesiolysis. Then hydrodissection was used to release the omentum off the anterior cul-de-sac and lower uterine corpus anteriorly. Sharp dissection and blunt dissection using the LigaSure device as well as energy to cauterize dense tissue areas were used to open up and normalize anatomy. Sigmoid colon to the left pelvic sidewall adhesions were noted and taken down with the LigaSure device. Part of the right pericolic fat was noted to be adherent to the right adnexa and ovary. Adhesiolysis continued to be performed taking the bowel off the back of the uterus and opening up the space. It was still unclear exactly where the bowel was next to the ovary on the right- hand side and therefore general surgery was consulted for assistance. Dr. Soto came in and confirmed the correct anatomical spaces and dissected off the perisigmoid area from the dense adherent tissue to the ovary putting the space and releasing it off the back of the lower uterine corpus without complication. He looked over the other areas and noted no bowel involvement or issues that he could see at that time. The right fallopian tube was then elevated and removed after dissecting it off with the LigaSure device. 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 A hemorrhagic versus chocolate cyst was encountered and drained no visible cyst wall to be removed was noted. Multiple areas were cauterized to obtain hemostasis and Floseal was placed over the base of the ovary with the raw areas were noted to obtain additional hemostasis. Floseal was also placed over some of the raw areas over the back of the uterus where the adhesiolysis was performed. Angela placed over all of the areas to help with the raw appearance and in hopes of reducing scar tissue in the future. Tube was placed in a 5 mm port bag and removed through the 5 mm port without complication. All instruments removed from the abdomen after gas was desufflated. Port sites were closed with 3-0 Monocryl Steri's and op sites were applied. All instruments removed from the vagina and patient was awoken and taken recovery in stable condition. Grafts/Implants Used: none Complications none Admit VTE Documentation VTE Present on Admission: No VTE Mechan Device Prophylaxis: SCD's Multi Select Codes Urinary/Genital Urinary/Genital CPT Codes: 84848 Laproscopic BS/O
== END 2021-12-22 20:20 | disposition home or self-care (01) ==
LOC: SDC 11:25 → AC 11:27
PROVIDERS: Anesthesiology; Referring Provider Obstetrics & Gynecology; Visit Provider Obstetrics & Gynecology
PROC: (CPT 58661; principal; 2021-12-22 12:55)
DX: Z30.2 Encounter for sterilization (principal); F12.90 Cannabis use, unspecified, uncomplicated
CPT/HCPCS: 58661; 00840; 81025; 85025; 86850; 86900; 86901; 88302; J7120; J2405

== ENCOUNTER 2022-01-13 11:19 | Inpatient (IN) | payer BC, SELFPAY ==
[2022-01-13 11:19] VITALS: BP 118/82; PULSE 106; RESP 16; TEMP 36.6; O2SAT 100; BMI 38.7
--- NOTE | 2022-01-13 12:22 | CT_ITS ---
STUDY: CT ABDOMEN AND PELVIS WITH CONTRAST REASON FOR EXAM: Female, 26 years old. abdominal pain RADIATION DOSAGE (If Supplied By Facility): CTDIvol = ( 16.91 ) mGy, DLP = ( 1342.84 ) mGycm TECHNIQUE: Transaxial images were obtained from the dome of the diaphragm to the symphysis pubis without oral contrast. IV 100mL Isovue-300 was administered. Sagittal and coronal images were reconstructed. Individualized dose optimization techniques were used for this CT. COMPARISON: CT of abdomen and pelvis dated JUNE 02, 2018 FINDINGS: Mild to moderate inflammatory stranding and edema is present across the lower abdomen and upper pelvis radiating from the superior aspect of the uterus and right adnexa suggesting mesenteric inflammation or infection or PID. No abscess or free air is present. The uterine and right ovarian parenchyma are grossly unremarkable. The left ovary has been surgically removed. Fluid-filled and mildly dilated jejunal loops suggests mild enteritis or focal ileus. Normal remaining small bowel loops. Normal stomach. Normal appendix. Normal colon. The visualized lung bases are unremarkable. The visualized portions of the heart are within normal limits. Normal liver. Normal gallbladder and extrahepatic biliary system. Normal spleen. Normal pancreas. Normal bilateral adrenal glands. Normal right kidney. Normal left kidney. Normal abdominal aorta. Normal inferior vena cava. Normal retroperitoneum. Normal urinary bladder. Healed midline surgical incision tract of the anterior abdominal wall. No hernias are present.. Normal osseous structures. CT/Abdomen/Pelvis W IV Cont ONLY IMPRESSION: 1. Mild to moderate inflammatory stranding and edema is present across the lower abdomen and upper pelvis radiating from the superior aspect of the uterus and right adnexa suggesting mesenteric inflammation or infection or PID. No abscess or free air is present. 2. The uterine and right ovarian parenchyma are grossly unremarkable. The left ovary has been surgically removed. 3. Fluid-filled and mildly dilated jejunal loops suggests mild enteritis or focal ileus. Normal remaining small bowel loops. Normal stomach. Normal appendix. Normal colon. Electronically Signed: Arturo Marroquin MD at 13:12 EST ,
[2022-01-13 12:31] LABS: Absolute Lymphocyte Count 1.77 X10^3/uL (0.83-4.51); Absolute Neutrophil Count 8.5 X10^3/uL (2.0-7.7); Basophil# 0.05 X10^3/uL; Basophil% 0.4 % (0-1); Eosinophil# 0.49 X10^3/uL; Eosinophils% 4.1 % (0-5); Hematocrit 36.6 % (37-47); Hemoglobin 12.3 g/dL (12.0-15.0); Lymphocyte # 1.77 X10^3/ul (0.83-4.51); Lymphocyte % 14.7 % (19-41); Mean Corp Hgb Conc 33.6 g/dL (32-36); Mean Corpuscular Hgb 30.7 pg (27.0-32.0); Mean Corpuscular Volume 91.3 fL (81-99); Monocyte# 1.15 X10^3/uL; Monocyte% 9.5 % (0-10); NRBC Flagged by Analyzer 0 % (0-5); Neutrophil # 8.53 X10^3/uL (2.7-7.7); Neutrophil % 70.8 % (47-70); Platelet Count 411 K/mm3 (150-450); RBC Distribution Width CV 12.1 % (11.6-14.6); RBC Distribution Width SD 40.7 fl (35.1-43.9); Red Blood Count 4.01 M/mm3 (4.2-5.4); White Blood Count 12.1 K/mm3 (4.4-11.0)
--- NOTE | 2022-01-13 12:33 | ED.VIS.GI ---
HPI HPI - GI History of Present Illness Chief Complaint: Abd Pain Narrative Narrative: 26-year-old female with history of adhesions, and recent salpingectomy presenting with abdominal pain. She had her salpingectomy performed by Dr. Ch. She has had recurrent bloating sensation and abdominal pain which she describes as diffuse. She states she did have urinary symptoms originally before she had surgery and did not get to finish the course of antibiotics. She states sometimes she has dysuria. She is not had fever, chills, nausea, vomiting. She denies vaginal complaints or diarrhea. She only complains of diffuse crampy abdominal pain. She was referred here by her package maker because she continues to have pain and she was not able to get a CAT scan as an outpatient today. PFSH PFSH Medical History Anxiety Back pain Bladder disease Depression Marijuana use Migraine headache Non-smoker Home Medications NK 01/13/22 [History Last Taken Unknown] Allergy/AdvReac Type Severity Reaction Status Date / Time oxycodone [From Percocet] AdvReac Nausea/Vom/ Verified 01/13/22 11:21 Diarrhea Family History Father Diabetes parents were adopted- does not know history other than DM for father Surgical History Ovarian cyst S/P unilateral salpingo-oophorectomy (~07/19/18) Social History Smoking Status: Never smoker alcohol intake: never substance use type: does not use caffeine: Yes what type of physical activity do you participate in: walking seatbelt use: always do you feel safe at home: Yes additional social history: single- works at [employer] ED Constitutional Constitutional ED: Denies chills or fever(s) ENT ENT ED: Denies rhinorrhea or sore throat Cardiovascular Cardiovascular: Denies chest pain or palpitations Respiratory/Chest Respiratory/Chest: Denies cough or dyspnea Gastrointestinal Gastrointestinal: Reports abdominal pain; Denies constipation, melena, nausea or vomiting Genitourinary Genitourinary ED: Denies dysuria Musculoskeletal Musculoskeletal: Denies arthralgias or back pain Integumentary Denies abscess or Abrasions Neurologic Neurologic: Denies headache(s) Psychiatric Psychiatric: Denies anxiety or depression Endocrine Endocrinology: Denies polydipsia or polyphagia EXAM Physical Exam Const Vital Signs: 01/13/22 11:19 01/13/22 14:35 Temperature 97.8 F 98.8 F Temperature Source Temporal Temporal Pulse Rate 106 H 100 Respiratory Rate 16 16 Blood Pressure 118/82 H 125/85 H Blood Pressure Mean 94 98 Pulse Ox 100 100 Oxygen Delivery Method Room Air Room Air Positive well nourished General Appearance ED: NAD; Negative for pallor HEENT Reports moist mucous membranes normocephalic and atraumatic Eyes PERRL and EOMs intact bilaterally Resp normal respiratory effort and clear to auscultation bilaterally Cardio regular rhythm Rate: tachycardic GI GI Narrative: Diffuse abdominal tenderness. No rebound or guarding. Neuro CN's II-XII intact bilaterally Sensorium / Orientation: alert Motor Exam: strength 5/5 throughout Psych mental status grossly normal and thought process normal Skin no wounds General Skin Exam: Negative for jaundice or pallor MDM MDM MDM Narrative Medical decision making narrative: Patient presenting with abdominal pain she is had since her surgery. She denies any fevers, chills, nausea, vomiting, constipation, diarrhea. She has no urinary or vaginal complaints but does report that she did not finish her cycle of antibiotics before surgery as she was being treated for UTI. Patient reports diffuse bloating of pain. Blood work is obtained and her CBC shows a leukocytosis of 12.1. Hemoglobin hematocrit are stable. Platelets are normal at 411. Renal function electrolytes are normal. LFTs and lipase unremarkable. Urinalysis negative for infection. Patient did declined any analgesia or antiemetics. I obtained a CT of the abdomen pelvis with IV contrast which showed mild to moderate inflammatory stranding and edema is present across the lower abdomen and upper pelvis radiating from the superior aspect of the uterus and right adnexa suggesting mesenteric inflammation or infection or PID.? There was also findings of an possible enteritis. Discussed with Dr. Herrera who recommended Zosyn and admission for monitoring. Patient was counseled on this. She was transported to the floor in stable condition. Impression: 1. Postoperative abdominal pain 2. Enteritis 3. Mesenteric inflammation 4. Leukocytosis Lab Data Attestation: I reviewed the patient's lab results. Labs: Laboratory Results - last 24 hr 01/13/22 01/13/22 01/13/22 11:30 11:30 13:20 WBC 12.1 H RBC 4.01 L Hgb 12.3 Hct 36.6 L MCV 91.3 MCH 30.7 MCHC 33.6 RDW Std Deviation 40.7 RDW Coeff of Kareen 12.1 Plt Count 411 MPV 10.0 Immature Gran % (Auto) 0.500 Neut % (Auto) 70.8 H Lymph % (Auto) 14.7 L [place] % (Auto) 9.5 Eos % (Auto) 4.1 Baso % (Auto) 0.4 Absolute Neuts (auto) 8.5 H Absolute Lymphs (auto) 1.77 Nucleated RBC % 0 Sodium 137 Potassium 3.1 L Chloride 102 Carbon Dioxide 29.0 Anion Gap 6 BUN 11 Creatinine 0.73 Estim Creat Clear Calc 103.24 Est GFR (MDRD) Af Amer 122 Est GFR (MDRD) Non-Af 101 BUN/Creatinine Ratio 15.1 Glucose 99 Calcium 8.9 Total Bilirubin 0.40 AST 11 L ALT 15 Alkaline Phosphatase 73 Total Protein 8.0 Albumin 3.1 L Globulin 4.9 H Albumin/Globulin Ratio 0.6 L Lipase 87 Urine Color Yellow Urine Clarity Clear Urine pH 7.0 Ur Specific [place] 1.010 Urine Protein 15 H Urine Glucose (UA) Normal Urine Ketones 15 H Urine Occult Blood Negative Urine Nitrite Negative Urine Bilirubin Negative Urine Urobilinogen Normal Ur Leukocyte Esterase 25 H Urine RBC 0 SEEN Urine WBC 0-5 SEEN Ur Squamous Epith Cells 0-5 SEEN Urine Bacteria 0 SEEN Urine Mucus 0 SEEN Radiography Diagnostic Testing: Clinical Impression(s) from Imaging Studies Abdomen/Pelvis CT 01/13/22 12:22 IMPRESSION: 1. Mild to moderate inflammatory stranding and edema is present across the lower abdomen and upper pelvis radiating from the superior aspect of the uterus and right adnexa suggesting mesenteric inflammation or infection or PID. No abscess or free air is present. 2. The uterine and right ovarian parenchyma are grossly unremarkable. The left ovary has been surgically removed. 3. Fluid-filled and mildly dilated jejunal loops suggests mild enteritis or focal ileus. Normal remaining small bowel loops. Normal stomach. Normal appendix. Normal colon. Electronically Signed: Arturo Marroquin MD at 13:12 EST Reading Location ID and State: [facility] / [place] , Service support , Discharge Plan Triage Chief Complaint: Abd Pain ED Provider: Flavio Spivey Dx/Rx/DC Orders Primary Care Provider: Care Physician,No Primary
[2022-01-13 12:48] LABS: ALB/GLOB Ratio 0.6 RATIO (0.9-2.4); AST(SGOT) 11 U/L (15-37); Alanine Aminotransfer ALT/SGPT 15 U/L (13-56); Albumin, Serum 3.1 g/dL (3.2-5.0); Alkaline Phosphatase 73 U/L (45-117); Anion Gap 6 (5-15); BUN 11 mg/dL (7-18); BUN/Creat Ratio 15.1 RATIO (10-20); Calcium,Total 8.9 mg/dL (8.5-10.1); Chloride 102 mmol/L (98-107); Creatinine, Serum 0.73 mg/dL (0.55-1.02); EST Glomerular Filtration Rate 101 mL/min (>60); Est Glom Filt Rate - Afr Amer 122 mL/min (>60); Estimated Creatinine Clearance 103.24 ml/min; Globulin 4.9 g/dL (2.2-4.2); Glucose 99 mg/dL (74-106); Lipase 87 U/L (73-393); Potassium 3.1 mmol/L (3.5-5.1); Sodium Level 137 mmol/L (136-145)
[2022-01-13 13:37] LABS: Bacteria 0 SEEN /hpf (None Seen); Mucous, Urine 0 SEEN /hpf (<or=2+); Red Blood Cells-Urine 0 SEEN /hpf (0-5)
[2022-01-13 13:42] LABS: Color, Urine Yellow (Yellow); Glucose, Dipstick Normal (Normal); Ketone-Dipstick 15 mg/dl (Negative); Leukocyte Esterase-Dipstick 25 /ul (Negative); Nitrite-Dipstick Negative (Negative); Occult Blood-Urine Negative /ul (Negative); Protein-Dipstick 15 mg/dl (Negative); Urine Bilirubin Dipstick Negative (Negative); Urine Clarity Clear (Clear); Urine Urobilinogen Normal (Normal)
[2022-01-13 13:48] LABS: Squamous Epithelial Cells - UA 0-5 SEEN /hpf (5-10); White Blood Cells 0-5 SEEN /hpf (0-5)
[2022-01-13 14:35] VITALS: BP 125/85; PULSE 100; RESP 16; TEMP 37.1; O2SAT 100
[2022-01-13 15:52] VITALS: BMI 34.5
[2022-01-13 15:55] VITALS: BP 130/82; PULSE 101; RESP 16; TEMP 37.1; O2SAT 100
--- NOTE | 2022-01-13 17:52 | PCM.HP.OB ---
HPI - General General Date of Admission: 01/13/22 HPI Narrative MITCHELL SMALLWOOD, is a 26 F who presents to [facility] ER with the complaint of worsening pain 3 weeks after diagnostic laparoscopy, bilateral salpingectomy, and lysis of adhesions with help from Dr. Granados to take down adhesions on the fallopian tubes, ovaries, and ovary. She complains of low grade fever, no nausea, vomiting or constipation but states that she has not eaten anything in [address] in the ER was performed showing the following: IMPRESSION: 1.? Mild to moderate inflammatory stranding and edema is present across the lower abdomen and upper pelvis radiating from the superior aspect of the uterus and right adnexa suggesting mesenteric inflammation or infection or PID.? No abscess or free air is present. 2.? The uterine and right ovarian parenchyma are grossly unremarkable.? The left ovary has been surgically removed. 3.? Fluid-filled and mildly dilated jejunal loops suggests mild enteritis or focal ileus.? Normal remaining small bowel loops.? Normal stomach. Normal appendix.? Normal colon. The plan to admit and make NPO with IV abx was discussed with the patient. She stated that she was very upset with this outcome and would rather go home. She also declines an exam and asks that I not touch her. [facility] Medical History Anxiety Back pain Bladder disease Depression Marijuana use Migraine headache Non-smoker Home Medications NK 01/13/22 [History Last Taken Unknown] Allergy/AdvReac Type Severity Reaction Status Date / Time oxycodone [From Percocet] AdvReac Nausea/Vom/ Verified 01/13/22 11:21 Diarrhea Family History Father Diabetes parents were adopted- does not know history other than DM for father Surgical History Ovarian cyst S/P unilateral salpingo-oophorectomy (~07/19/18) Social History Smoking Status: Never smoker alcohol intake: never substance use type: does not use caffeine: Yes what type of physical activity do you participate in: walking seatbelt use: always do you feel safe at home: Yes additional social history: single- works at [employer] History 0 Elective abortions Hx Para Spontaneous abortions Hx # Term Pregnancies Ectopic pregnancies Hx # Pregnancies Multiple births # of living children ROS Constitutional Constitutional: Reports systems reviewed and no addt'l complaints, except as documented; Denies anorexia, chills, fatigue, headache(s), malaise or night sweats Cardiovascular Cardiovascular: Denies chest pain, pounding heartbeat or racing heartbeat Respiratory/Chest Respiratory/Chest: Denies chest tightness or cough Gastrointestinal Gastrointestinal: Reports abdominal pain, anorexia and bloating; Denies change in bowel habits, change in stool character, constipation, cramping, diarrhea, heartburn, hemorrhoids or vomiting Genitourinary Genitourinary: Denies difficulty urinating, dysuria or flank pain Musculoskeletal Musculoskeletal: Denies back pain, myalgias or stiffness Vital Signs Vital Signs Vital Signs: 01/13/22 11:19 01/13/22 14:35 01/13/22 15:55 Temperature 97.8 F 98.8 F 98.7 F Temperature Source Temporal Temporal Oral Pulse Rate 106 H 100 101 H Respiratory Rate 16 16 16 Respiratory Effort Respiratory Depth Respiratory Pattern Blood Pressure 118/82 H 125/85 H 130/82 H Blood Pressure Mean 94 98 98 Blood Pressure Source Monitor Blood Pressure Position Sitting Blood Pressure Location Right Arm Pulse Ox 100 100 100 Oxygen Delivery Method Room Air Room Air Room Air 01/13/22 15:58 Temperature Temperature Source Pulse Rate Respiratory Rate Respiratory Effort Non-Labored Respiratory Depth Normal Respiratory Pattern Normal Blood Pressure Blood Pressure Mean Blood Pressure Source Blood Pressure Position Blood Pressure Location Pulse Ox Oxygen Delivery Method Room Air Weight Weight: 207 lb 7.28 oz Body Mass Index (BMI) 34.5 Physical Exam Const alert, oriented x3 and no apparent distress Constitutional Narrative: patient is sitting up in bed, arms crossed and declining exam. Labs Labs Labs: Blood Type A POSITIVE Antibody Screen NEGATIVE Hct 36.6 % (37-47) L Hgb 12.3 g/dL (12.0-15.0) Pap Smear Negative Assessment & Plan (1) Acute postoperative abdominal pain: COMMENT: IMPRESSION: 1. Mild to moderate inflammatory stranding and edema is present across the lower abdomen and upper pelvis radiating from the superior aspect of the uterus and right adnexa suggesting mesenteric inflammation or infection or PID. No abscess or free air is present. 2. The uterine and right ovarian parenchyma are grossly unremarkable. The left ovary has been surgically removed. 3. Fluid-filled and mildly dilated jejunal loops suggests mild enteritis or focal ileus. Normal remaining small bowel loops. Normal stomach. Normal appendix. Normal colon. PLAN: plan to admit to [facility] NPO IV fluids Activity: as tolerated pain medication: patient declines states that she wont take anything. will order naproxen and oxy as needed if changes her mind to take with sips zosyn IV re-introduce diet tomorrow pending exam and clinical status. discussed with Dr. Granados for further recommendations. Charges/Coding Visit Charges Inpatient E&M: 95037 Init Hosp L3
[2022-01-13] MEDS: 0.9% Normal Saline 1,000 ML 125 ML IV (18:32)
[2022-01-13 20:00] VITALS: BP 116/66; PULSE 89; RESP 16; TEMP 36.9; O2SAT 100
[2022-01-14 02:00] VITALS: BP 98/52; PULSE 88; RESP 16; TEMP 36.6; O2SAT 99
[2022-01-14] MEDS: 0.9% Normal Saline 1,000 ML 125 ML IV ×2 (02:24→10:15)
[2022-01-14 07:42] LABS: Hemoglobin 11.5 g/dL (12.0-15.0); Mean Corp Hgb Conc 32.9 g/dL (32-36); Mean Corpuscular Hgb 30.7 pg (27.0-32.0); Mean Corpuscular Volume 93.3 fL (81-99); Mean Platelet Vol. 9.8 fl (6.2-12.0); Platelet Count 355 K/mm3 (150-450); RBC Distribution Width SD 41.3 fl (35.1-43.9); Red Blood Count 3.75 M/mm3 (4.2-5.4); White Blood Count 9.5 K/mm3 (4.4-11.0)
[2022-01-14 07:54] VITALS: BP 110/67; PULSE 89; RESP 16; TEMP 36.6; O2SAT 99
[2022-01-14 07:57] VITALS: BP 110/67; PULSE 89; RESP 16; TEMP 36.6; O2SAT 99
--- NOTE | 2022-01-14 08:38 | PN.OBGYN_ITS ---
Subjective Subjective Patient continues to be rude to staff and short with answers. She is now alone in the room and further questions were answered. She states that she has been sexually active since surgery without a condom, but with a stable partner. Ignacio last period was 3 days after surgery and she denies having sex while she was on her period. Overnight she denies fevers or chills. She consents to an abdominal exam this morning. Objective Data Objective Data Vital Signs: Vital Signs Temp Pulse Resp BP Pulse Ox O2 Del Method 97.9 F 89 16 110/67 99 Room Air 01/14/22 07:57 01/14/22 07:57 01/14/22 07:57 01/14/22 07:57 01/14/22 07:57 01/14/22 07:57 Oxygen Delivery Method Room Air Weight: 207 lb 7.28 oz Body Mass Index (BMI) 34.5 Intake & Output: Intake and Output for Last 24 Hours 01/12/22 01/13/22 01/14/22 23:59 23:59 23:59 Intake Total 50 / 50 1033.33 / 1033.33 Balance 50 / 50 1033.33 / 1033.33 Lab / Micro Data Result Diagrams: 01/14/22 07:10 01/13/22 11:30 Labs: Laboratory Results - last 24 hr 01/13/22 11:30: WBC 12.1 H, RBC 4.01 L, Hgb 12.3, Hct 36.6 L, MCV 91.3, MCH 30.7, MCHC 33.6, RDW Std Deviation 40.7, RDW Coeff of Kareen 12.1, Plt Count 411, M PV 10.0, Immature Gran % (Auto) 0.500, Neut % (Auto) 70.8 H, Lymph % (Auto) 14.7 L, Nobles % (Auto) 9.5, Eos % (Auto) 4.1, Baso % (Auto) 0.4, Absolute Neuts (auto) 8.5 H, Absolute Lymphs (auto) 1.77, Nucleated RBC % 0 01/13/22 11:30: Sodium 137, Potassium 3.1 L, Chloride 102, Carbon Dioxide 29.0, Anion Gap 6, BUN 11, Creatinine 0.73, Estim Creat Clear Calc 103.24, Est GFR (MDRD) Af Amer 122, Est GFR (MDRD) Non-Af 101, BUN/Creatinine Ratio 15.1, Glucose 99, Calcium 8.9, Total Bilirubin 0.40, AST 11 L, ALT 15, Alkaline Phosphatase 73, Total Protein 8.0, Albumin 3.1 L, Globulin 4.9 H, Albumin/Globulin Ratio 0.6 L, Lipase 87 01/13/22 13:20: Urine Color Yellow, Urine Clarity Clear, Urine pH 7.0, Ur Specific [place]ilt[place] 1.010, Urine Protein 15 H, Urine Glucose (UA) Normal, Urine Ketones 15 H, Urine Occult Blood Negative, Urine Nitrite Negative, Urine Bilirubin Negative, Urine Urobilinogen Normal, Ur Leukocyte Esterase 25 H, Urine RBC 0 SEEN, Urine WBC 0-5 SEEN, Ur Squamous Epith Cells 0-5 SEEN, Urine Bacteria 0 SEEN, Urine Mucus 0 SEEN 01/14/22 07:10: WBC 9.5, RBC 3.75 L, Hgb 11.5 L, Hct 35.0 L, MCV 93.3, MCH 30.7, MCHC 32.9, RDW Std Deviation 41.3, RDW Coeff of Kareen 12.0, Plt Count 355, MPV 9.8 Radiography Diagnostic Testing: Radiology Impression Abdomen/Pelvis CT 01/13/22 12:22 IMPRESSION: 1. Mild to moderate inflammatory stranding and edema is present across the lower abdomen and upper pelvis radiating from the superior aspect of the uterus and right adnexa suggesting mesenteric inflammation or infection or PID. No abscess or free air is present. 2. The uterine and right ovarian parenchyma are grossly unremarkable. The left ovary has been surgically removed. 3. Fluid-filled and mildly dilated jejunal loops suggests mild enteritis or focal ileus. Normal remaining small bowel loops. Normal stomach. Normal appendix. Normal colon. Electronically Signed: Arturo Marroquin MD at 13:12 EST Reading Location ID and State: [facility] / [place] , Service support , ROS Constitutional Constitutional: Reports systems reviewed and no addt'l complaints, except as documented Cardiovascular Cardiovascular: Denies chest pain, dizziness, dyspnea or irregular heart rhythm Respiratory/Chest Respiratory/Chest: Denies cough, pain on inspiration or shortness of breath at rest Gastrointestinal Gastrointestinal: Denies abdominal pain, nausea or vomiting Genitourinary Genitourinary: Denies burning urination Musculoskeletal Musculoskeletal: Denies muscle cramps, muscle spasms or muscle weakness Neurologic Neurologic: Denies confusion, dizziness or headache(s) Psychiatric Psychiatric: Denies anxiety, behavioral changes or depression Physical Exam HEENT normocephalic Resp normal respiratory effort and normal air movement GI soft to palpation, non-tender and non-distended no CVA tenderness Extremity normal to inspection Assessment & Plan (1) Acute postoperative abdominal pain: COMMENT: IMPRESSION: 1. Mild to moderate inflammatory stranding and edema is present across the lower abdomen and upper pelvis radiating from the superior aspect of the uterus and right adnexa suggesting mesenteric inflammation or infection or PID. No abscess or free air is present. 2. The uterine and right ovarian parenchyma are grossly unremarkable. The left ovary has been surgically removed. 3. Fluid-filled and mildly dilated jejunal loops suggests mild enteritis or focal ileus. Normal remaining small bowel loops. Normal stomach. Normal appendix. Normal colon. PLAN: abdomen is soft and non-distended this am. plan to advance diet will decide discharge based on her tolerability likely dc home on abx that would cover PID (flagyl + doxy) (2) Pelvic adhesions: COMMENT: Severe uterus encased in bowel and omentum as well as right ovary . Status post adhesiolysis December 22, 2021. If patient needs hysterectomy in future recommend [facility] or minimally invasive surgery consult. possibly due to endometriosis vs previous surgery. (3) History of salpingectomy: COMMENT: severe scar tissue uterus encased in bowel and omentum, right ovary opened due to multicystic. (4) Cyclical pelvic pain: COMMENT: h/o ovarian cysts
[2022-01-14 10:39] LABS: Neisserai gonorrhoeae by PCR Negative (Negative)
[2022-01-14 10:40] LABS: Probe Check PASS
[2022-01-14 10:42] LABS: Chlamydia Trachomatis by PCR POSITIVE (Negative)
== END 2022-01-14 11:11 | disposition home or self-care (01) | DRG 392 ==
LOC: ED 12:08 → MS3 16:09
PROVIDERS: Admitting Provider Obstetrics & Gynecology; Emergency Provider Student in an Organized Health Care Education/Training Program; Visit Provider Obstetrics & Gynecology
DX: K52.9 Noninfective gastroenteritis and colitis, unspecified (principal); N73.6 Female pelvic peritoneal adhesions (postinfective); Z98.890 Other specified postprocedural states
CPT/HCPCS: 74177; 80053; 81001; 83690; 85025; 85027; 87491; 87591; 99284; J7030; J7040; J7050; Q9967; A4216

== ENCOUNTER → 2022-01-13 | Outpatient (CLI) | payer BC, SELFPAY | END | disposition home or self-care (01) | LOC: LABSPEC 13:27 | PROVIDERS: Referring Provider Nurse Practitioner Women's Health; Visit Provider Nurse Practitioner Women's Health | DX: N89.8 Other specified noninflammatory disorders of vagina (principal) | CPT/HCPCS: 87070; 87205 ==

== ENCOUNTER → 2022-05-03 | Outpatient (CLI) | payer BC, SELFPAY ==
[2022-05-05 21:07] LABS: Chlamydia By Nucleic Acid AMP Negative (Negative)
[2022-05-05 21:29] LABS: Gonococcus By Nucleic Acid AMP Negative (Negative)
[2022-05-10 13:42] LABS: HPV Reflexed? NOT INDICATED
== END | disposition home or self-care (01) ==
LOC: LABSPEC 12:54
PROVIDERS: Referring Provider Nurse Practitioner Women's Health; Visit Provider Nurse Practitioner Women's Health
DX: Z12.4 Encounter for screening for malignant neoplasm of cervix (principal); N89.8 Other specified noninflammatory disorders of vagina; A74.9 Chlamydial infection, unspecified
CPT/HCPCS: 87070; 87205; 87491; 87591; 88175; G0145

== ENCOUNTER → 2023-03-29 | Outpatient (CLI) | payer BC, SELFPAY ==
--- OUTSIDE RECORDS SUMMARY | 2023-03-29 08:22 | XMS RPT_ITS | CCD ---
Author Name Unknown Address [address] [place] [address] Organization [facility] Results Test Name Value Interpretation Reference Range Facil ity Summary Purpose Family History No Family History Records Found Advance Directives No Advanced Directives Records Found Additional Source Comments INFORMATION SOURCE (unrecogn ized section and content) FOR RECORDS PERTAINING TO PATIENTS WHO ARE OR HAVE BEEN ENROLLED IN A CHEMICAL DEPENDENCY/SUBSTANCEABUSE PROGRAM, SOME INFORMATION MAY BE OMITTED. This clinical summary was aggregated from multiple sources. Caution should be exercised in using it in the provision of clinical care. This summary normalizes information from multiple sources, and as a consequence, information in this document may materially change the coding, format and clinical context of patient data. In addition, data may be omitted in some cases. CLINICAL DECISIONS SHOULD BE BASED ON THE PRIMARY CLINICAL RECORDS. [employer] provides no warranty or guarantee of the accuracy or completeness of information in this document.
[2023-03-29 08:41] LABS: Cholesterol 144 mg/dL (200); High Density Lipoprotein 60 mg/dL; T4 Free Direct 1.07 ng/dL (0.76-1.46); Triglycerides 58 mg/dL; Very Low Density Lipoprotein 12 mg/dL (5-40)
[2023-03-29 09:30] LABS: Vitamin D,25 Hydroxy 19.8 ng/mL
[2023-03-29 11:50] LABS: Hemoglobin A1c 4.9 % (3.8-5.6)
[2023-04-06 08:11] LABS: DHEA Sulfate 92.7 ug/dL (84.8-378.0); Testosterone Free 0.3 pg/mL (0.0-4.2); Thyroid Peroxidase AB < 9 IU/mL (0-34)
== END | disposition home or self-care (01) ==
LOC: PAVLAB 08:03
PROVIDERS: Referring Provider Nurse Practitioner Women's Health; Visit Provider Nurse Practitioner Women's Health
DX: Z13.21 Encounter for screening for nutritional disorder (principal); L70.9 Acne, unspecified
CPT/HCPCS: 36415; 80061; 82306; 82627; 83036; 84402; 84439; 84443; 86376; 82626